=== PATIENT | male | born 1970 | race Caucasian/White ===

== ENCOUNTER 2018-05-20 16:21 | Observation (INO) | payer SELFPAY ==
[2018-05-20] MEDS ORDERED: ASPIRIN 81 MG TABLET, CHEWABLE PO ONE (16:54)
--- NOTE | 2018-05-20 16:54 | ER Document Report ---
ED Medical Screen (RME) <MAR KELLOGG - Last Filed: 05/20/18 16:53> <KEVIN LORENZ - Last Filed: 05/20/18 19:52> - General Chief Complaint: Chest Pain Stated Complaint: CHEST PAIN Time Seen by Provider: 05/20/18 16:45 Notes: 48 years old male lower substernal pain since this afternoon 11/17 in intensity. Nonradiating not associated with any nausea vomiting palpitation or diaphoresis. But anxious. He is a non-smoker no alcohol abuse. His father of [place] at the age of 60. (MAR KELLOGG) - Related Data Allergies/Adverse Reactions: No Known Allergies Allergy (Unverified 05/20/18 16:23) Past Medical History - Social History Frequency of alcohol use: None Drug Abuse: None - Past Medical History Cardiac Medical History: Reports: Hx Hypertension Renal/ Medical History: Denies: Hx Peritoneal Dialysis <MAR KELLOGG - Last Filed: 05/20/18 16:53> - Vital signs Vitals: Temp Pulse Resp BP Pulse Ox 98.9 F 100 18 128/65 H 96 05/20/18 16:39 05/20/18 16:39 05/20/18 16:39 05/20/18 16:39 05/20/18 16:39 Course - Laboratory Result Diagrams: 05/20/18 17:02 05/20/18 17:02 <KEVIN LORENZ - Last Filed: 05/20/18 19:52> - Vital Signs Vital signs: Temp Pulse Resp BP Pulse Ox 98.9 F 100 21 H 128/75 H 96 05/20/18 16:39 05/20/18 16:39 05/20/18 19:01 05/20/18 19:01 05/20/18 19:01 - Laboratory Laboratory results interpreted by me: 05/20/18 05/20/18 17:02 17:02 WBC 13.0 H Absolute Neutrophils 9.1 H ALT 85 H Alkaline Phosphatase 133 H Doctor's Discharge <MAR KELLOGG - Last Filed: 05/20/18 16:53> <KEVIN LORENZ - Last Filed: 05/20/18 19:52> - Discharge Clinical Impression: Chest pain Condition: Stable Disposition: ADMITTED OBSERVATION Referrals: LOCALDE,LISSETTE [Primary Care Provider] - Follow up as needed
--- NOTE | 2018-05-20 17:06 | EKG REPORT ---
SEVERITY:- NORMAL ECG - SINUS RHYTHM : Confirmed by: Dexter Moseley MD 20-May-2018 17:06:15
[2018-05-20 17:35] LABS: ABSOLUTE BASOPHILS # (AUTO) 0.1 10^3/uL (0.0-0.2); ABSOLUTE EOSINOPHILS # (AUTO) 0.4 10^3/uL (0.0-0.6); ABSOLUTE LYMPHOCYTES (AUTO) 2.5 10^3/uL (0.5-4.7); ABSOLUTE MONOCYTES (AUTO) 0.9 10^3/uL (0.1-1.4); ABSOLUTE NEUT (AUTO) 9.1 10^3/uL (1.7-8.2); BASOPHILS % (AUTO) 0.7 % (0-2); EOSINOPHILS % (AUTO) 3.1 % (0-6); HEMATOCRIT 45.7 % (37.9-51.0); HEMOGLOBIN 15.3 g/dL (13.5-17.0); LYMPHOCYTES % (AUTO) 19.2 % (13-45); MEAN CORPUSCULAR HEMOGLOBIN 28.7 pg (27.0-33.4); MEAN CORPUSCULAR HGB CONC 33.6 g/dL (32.0-36.0); MEAN CORPUSCULAR VOLUME 85 fl (80-97); MONOCYTES % (AUTO) 6.7 % (3-13); PLATELET COUNT 327 10^3/uL (150-450); RED BLOOD COUNT 5.35 10^6/uL (4.35-5.55); RED CELL DISTRIBUTION WIDTH 13.7 % (11.5-14.0); SEGMENTED NEUTROPHILS % (AUTO) 70.3 % (42-78); TOTAL CELLS COUNTED % (AUTO) 100 %
--- NOTE | 2018-05-20 17:46 | RADIOLOGY REPORT (SQ) ---
EXAM DESCRIPTION: CHEST SINGLE VIEW COMPLETED DATE/TIME: 05/20/2018 5:34 pm REASON FOR STUDY: Chest pain COMPARISON: None. EXAM PARAMETERS: NUMBER OF VIEWS: One view. TECHNIQUE: Single frontal radiographic view of the chest acquired. RADIATION DOSE: NA LIMITATIONS: None. FINDINGS: LUNGS AND PLEURA: No opacities, masses or pneumothorax. No pleural effusion. MEDIASTINUM AND HILAR STRUCTURES: No masses. Contour normal. HEART AND VASCULAR STRUCTURES: Heart normal in size. Normal vasculature. BONES: No acute findings. HARDWARE: None in the chest. OTHER: No other significant finding. IMPRESSION: NO ACUTE RADIOGRAPHIC FINDING IN THE CHEST. TECHNICAL DOCUMENTATION: JOB ID: [id number] [employer]- All Rights Reserved Reading location - IP/workstation name: [email or web address]
[2018-05-20] MEDS ORDERED: METOCLOPRAMIDE HCL ORAL SOLN 10 MG/10 ML UDCUP PO ONE (17:54)
[2018-05-20] MEDS ORDERED: LIDOCAINE 2% VISCOUS SOLN 20 ML UDCUP PO ONE (17:54)
[2018-05-20] MEDS ORDERED: MAG HYDROX/AL HYDROX/SIMETH SUSP 30 ML UDCUP PO ONE (17:54)
[2018-05-20 18:14] LABS: ALANINE AMINOTRANSFERASE 85 U/L (21-72); ALBUMIN 4.6 g/dL (3.5-5.0); ALKALINE PHOSPHATASE 133 U/L (38-126); ANION GAP 10 (5-19); ASPARTATE AMINO TRANSFERASE 47 U/L (17-59); BILIRUBIN,DIRECT 0.2 mg/dL (0.0-0.4); BILIRUBIN,TOTAL 0.4 mg/dL (0.2-1.3); BLOOD UREA NITROGEN 11 mg/dL (7-20); CALCIUM 9.9 mg/dL (8.4-10.2); CARBON DIOXIDE 29 mmol/L (22-30); CHLORIDE 101 mmol/L (98-107); CREATINE KINASE 56 U/L (55-170); GLUCOSE 89 mg/dL (75-110); SODIUM 139.8 mmol/L (137-145); TOTAL PROTEIN 7.2 g/dL (6.3-8.2)
[2018-05-20 18:17] LABS: POTASSIUM 4.5 mmol/L (3.6-5.0)
[2018-05-20 18:25] LABS: CREATINE KINASE MB < 0.22 ng/mL (<4.55); TROPONIN I < 0.012 ng/mL
[2018-05-20] MEDS ORDERED: ONDANSETRON 4 MG TAB.RAPDIS PO PRN (20:03)
[2018-05-20] MEDS ORDERED: ONDANSETRON HCL INJ/PF 4 MG/2 ML SDV IV PRN (20:03)
[2018-05-20] MEDS ORDERED: MAGNESIUM HYDROXIDE SUSP 30 ML UDCUP PO PRN (20:03)
[2018-05-20] MEDS ORDERED: ACETAMINOPHEN 650 MG SUPP.RECT PR PRN (20:14)
[2018-05-20] MEDS ORDERED: HYDRALAZINE HCL INJ/PF 20 MG/1 ML SDV IV PRN (20:14)
[2018-05-20] MEDS ORDERED: ALBUTEROL SULFATE 0.083% NEB 2.5 MG/3 ML AMPUL NEB PRN (20:14)
[2018-05-20] MEDS ORDERED: NITROGLYCERIN 0.4 MG/TAB 25 TAB/BOTTLE SL PRN (20:14)
[2018-05-20] MEDS ORDERED: MORPHINE SULFATE 10 MG/ML INJ IV PRN ×3 (20:14)
[2018-05-20] MEDS ORDERED: ACETAMINOPHEN 325 MG TABLET PO PRN (20:14)
[2018-05-20] MEDS ORDERED: NICOTINE 21 MG/24 HR PATCH.TD24 TD PRN (20:14)
[2018-05-20] MEDS: METOCLOPRAMIDE HCL 10 MG TABLET PO SCH (21:08)
[2018-05-20] MEDS ORDERED: FAMOTIDINE 20 MG TABLET PO SCH (22:00)
--- NOTE | 2018-05-20 22:40 | ER Document Report ---
ED General - General Chief Complaint: Chest Pain Stated Complaint: CHEST PAIN Time Seen by Provider: 05/20/18 16:45 Mode of Arrival: Ambulatory Information source: Patient Notes: This is a 48-year-old man with a history of hypertension and anxiety who presents to the emergency room after an episode of retrosternal chest pain associated with palpitations and near syncope. Patient states he still had chest discomfort for approximately an hour and 1/2-2 hours after the event. He is currently pain-free. TRAVEL OUTSIDE OF THE [place] IN LAST 30 DAYS: No - HPI Onset: Just prior to arrival Onset/Duration: Sudden Quality of pain: Dull Severity: Moderate Pain Level: 2 Associated symptoms: Chest pain. denies: Fever, Shortness of breath Exacerbated by: Denies Relieved by: Denies Similar symptoms previously: Yes Recently seen / treated by doctor: No - Related Data Allergies/Adverse Reactions: No Known Allergies Allergy (Unverified 05/20/18 16:23) Past Medical History - General Information source: Patient - Social History Smoking Status: Never Smoker Cigarette use (# per day): No Chew tobacco use (# tins/day): No Frequency of alcohol use: None Drug Abuse: None Lives with: Family Family History: CAD Patient has suicidal ideation: No Patient has homicidal ideation: No - Past Medical History Cardiac Medical History: Reports: Hx Hypertension Denies: Hx Coronary Artery Disease, Hx Heart Attack Pulmonary Medical History: Denies: Hx Asthma, Hx COPD, Hx Respiratory Failure EENT Medical History: Reports: None Neurological Medical History: Denies: Hx Migraine, Hx Seizures Endocrine Medical History: Denies: Hx Diabetes Mellitus Type 1, Hx Diabetes Mellitus Type 2, Hx Hyperthyroidism, Hx Hypothyroidism Renal/ Medical History: Denies: Hx Peritoneal Dialysis Malignancy Medical History: Reports None GI Medical History: Denies: Hx Cirrhosis, Hx Crohn's Disease, Hx Hepatitis, Hx Ulcerative Colitis Musculoskeletal Medical History: Denies Hx Arthritis, Denies Hx Gout Skin Medical History: Denies Hx Eczema, Denies Hx Psoriasis Traumatic Medical History: Reports: None Infectious Medical History: Reports: None. Denies: Hx Hepatitis Past Surgical History: Reports: None Review of Systems - Review of Systems Constitutional: denies: Chills, Fever EENT: No symptoms reported Cardiovascular: See HPI Respiratory: denies: Short of breath, Wheezing Gastrointestinal: denies: Abdomen distended, Abdominal pain Genitourinary: No symptoms reported Male Genitourinary: No symptoms reported Musculoskeletal: No symptoms reported Skin: No symptoms reported Hematologic/Lymphatic: No symptoms reported Neurological/Psychological: No symptoms reported Physical Exam - Vital signs Vitals: Temp Pulse Resp BP Pulse Ox 98.9 F 100 18 128/65 H 96 05/20/18 16:39 05/20/18 16:39 05/20/18 16:39 05/20/18 16:39 05/20/18 16:39 Notes: Physical exam: GENERAL: She is alert and oriented x3, no acute distress HEAD: Atraumatic, normocephalic. EYES: Pupils equal round and reactive to light, extraocular movements intact, sclera anicteric, conjunctiva are normal. ENT: TMs normal, nares patent, oropharynx clear without exudates. Moist mucous membranes. NECK: Normal range of motion, supple without obvious mass or JVD. LUNGS: Breath sounds clear to auscultation bilaterally and equal. No wheezes rales or rhonchi. HEART: Regular rate and rhythm without murmurs, rubs or gallops. ABDOMEN: Soft, normoactive bowel sounds. No tenderness to palpation. No guarding, no rebound. No masses appreciated. EXTREMITIES: Normal range of motion, no pitting or edema. No clubbing or cyanosis. NEUROLOGICAL: Cranial nerves II through XII grossly intact. Normal speech, moving all extremities. PSYCH: Normal mood, normal affect. SKIN: Warm, Dry, normal turgor, no rashes or lesions noted. Course - Vital Signs Vital signs: Temp Pulse Resp BP Pulse Ox 98.9 F 100 23 H 121/77 96 05/20/18 16:39 05/20/18 16:39 05/20/18 21:01 05/20/18 21:01 05/20/18 21:01 - Laboratory Result Diagrams: 05/20/18 17:02 05/20/18 17:02 Laboratory results interpreted by me: 05/20/18 05/20/18 17:02 17:02 WBC 13.0 H Absolute Neutrophils 9.1 H ALT 85 H Alkaline Phosphatase 133 H - Diagnostic Test Radiology reviewed: Image reviewed, Reports reviewed - X-ray showed no infiltrates Discharge - Discharge Clinical Impression: Chest pain Condition: Stable Disposition: ADMITTED OBSERVATION Admitting Provider: Hospitalist - Dr Morales Unit Admitted: Telemetry
[2018-05-20] MEDS: FAMOTIDINE 20 MG TABLET PO SCH (23:14)
[2018-05-20] MEDS: SUCRALFATE SUSP 1 GM/10 ML UDCUP PO SCH (23:14)
[2018-05-20] MEDS: DOCUSATE SODIUM 100 MG CAPSULE PO SCH (23:14)
[2018-05-20 23:50] LABS: CREATINE KINASE MB < 0.22 ng/mL (<4.55); TROPONIN I < 0.012 ng/mL
--- NOTE | 2018-05-21 05:37 | PDOC H&P ---
History of Present Illness Admission Date/PCP: NO LOCALND Patient complains of: Chest pain History of Present Illness: MAGDY PENA is a 48 year old male who presented to the emergency room with acute onset chest pain. He admits that he developed chest pain about an hour or so prior to coming to the emergency room and continued to have chest pain for a total of approximately 1-1/2 hours. Pain was of a moderate to severe intensity (7/10) and was located in the substernal area of the anterior chest without radiation. Pain was constant from onset to and and only resolved after treatment in the emergency room. Pain was accompanied by palpitations (rapid heart rate) and lightheadedness/near syncope. He denies prior similar episodes and had not identified any aggravating or ameliorating factors for his pain prior to coming to the emergency room. He does relate a family history of early age onset coronary artery disease and he acknowledges a personal history of hypertension. In the emergency room his chest pain resolved after receiving a GI cocktail however due to his family history and personal risk factors it was felt the patient should have a further evaluation of his cardiac status. To that end he is admitted to observation status for cardiac stress testing in the morning. Past Medical History Cardiac Medical History: Reports: Hypertension Denies: Coronary Artery Disease, Myocardial Infarction Pulmonary Medical History: Denies: Asthma, Chronic Obstructive Pulmonary Disease (COPD), Respiratory Failure EENT Medical History: Reports: None Neurological Medical History: Denies: Migraine, Multiple Sclerosis, Seizures Endocrine Medical History: Reports: Obesity Denies: Diabetes Mellitus Type 1, Diabetes Mellitus Type 2, Hyperthyroidism, Hypothyroidism Renal/ Medical History: Denies: Chronic Kidney Disease, Nephrolithiasis Malignancy Medical History: Reports: None GI Medical History: Denies: Cirrhosis, Crohn's Disease, Hepatitis, Ulcerative Colitis Musculoskeltal Medical History: Denies: Arthritis, Gout Skin Medical History: Denies: Eczema, Psoriasis Psychiatric Medical History: Denies: Alcohol Dependency, Substance Abuse, Tobacco Dependency Traumatic Medical History: Reports: None Hematology: Denies: Anemia, Bleeding Tendencies Infectious Medical History: Reports: None Past Surgical History Past Surgical History: Reports: None Social History Information Source: Patient Smoking Status: Never Smoker Frequency of Alcohol Use: Rare Hx Recreational Drug Use: No Drugs: None Hx Prescription Drug Abuse: No - Advance Directive Resuscitation Status: Full Code Surrogate healthcare decision maker:: Mother Family History Family History: CAD Parental Family History Reviewed: Yes Children Family History Reviewed: No Sibling(s) Family History Reviewed.: Yes Medication/Allergy Home Medications: Hydroxyzine HCl [Atarax 25 mg Tablet] 25 mg PO 05/20/18 Lisinopril [Prinivil 5 mg Tablet] 2.5 mg PO DAILY 05/20/18 Allergies/Adverse Reactions: No Known Allergies Allergy (Unverified 05/20/18 16:23) Review of Systems Constitutional: ABSENT: chills, fever(s) Eyes: ABSENT: visual disturbances, other - Ocular pain Ears: ABSENT: hearing changes, other - Ear pain Nose, Mouth, and Throat: ABSENT: mouth pain, sore throat Cardiovascular: PRESENT: as per HPI, chest pain, palpitations. ABSENT: dyspnea on exertion, edema, orthropnea Respiratory: ABSENT: cough, dyspnea, hemoptysis Gastrointestinal: ABSENT: abdominal pain, constipation, diarrhea, nausea, vomiting Genitourinary: ABSENT: dysuria, hematuria Musculoskeletal: ABSENT: back pain, deformity, joint swelling Integumentary: ABSENT: pruritus, rash Neurological: PRESENT: as per HPI, other - Lightheadedness and near syncope. ABSENT: confusion, convulsions, memory loss Psychiatric: ABSENT: anxiety, depression Endocrine: ABSENT: cold intolerance, heat intolerance Hematologic/Lymphatic: ABSENT: easy bleeding, easy bruising Physical Exam Vital Signs: Temp Pulse Resp BP Pulse Ox 98.9 F 100 21 H 128/75 H 96 05/20/18 16:39 05/20/18 16:39 05/20/18 19:01 05/20/18 19:01 05/20/18 19:01 Intake & Output 05/18/18 05/19/18 05/20/18 23:59 23:59 23:59 Weight 99.2 kg General appearance: PRESENT: no acute distress, cooperative, obese Head exam: PRESENT: atraumatic, normocephalic Eye exam: PRESENT: conjunctiva pink, EOMI. ABSENT: scleral icterus Ear exam: PRESENT: normal external ear exam. ABSENT: bleeding, drainage Mouth exam: PRESENT: dry mucosa, neck supple Neck exam: ABSENT: JVD, thyromegaly, tracheal deviation Respiratory exam: PRESENT: clear to auscultation jack, symmetrical, unlabored Cardiovascular exam: PRESENT: RRR. ABSENT: clicks, gallop, rubs Pulses: PRESENT: normal radial pulses, normal dorsalis pedis pul GI/Abdominal exam: PRESENT: normal bowel sounds, soft Rectal exam: PRESENT: deferred Extremities exam: ABSENT: joint swelling, pedal edema, tenderness Musculoskeletal exam: PRESENT: full ROM, normal inspection Neurological exam: PRESENT: alert, oriented to person, oriented to place, orien gerardo to time, oriented to situation, CN II-XII grossly intact. ABSENT: motor sensory deficit Psychiatric exam: PRESENT: appropriate affect, normal mood Skin exam: PRESENT: dry, intact, warm. ABSENT: jaundice, rash, urticaria Results Laboratory Results: 05/20/18 17:02 05/20/18 17:02 05/20/18 05/20/18 17:02 17:02 WBC 13.0 H RBC 5.35 Hgb 15.3 Hct 45.7 MCV 85 MCH 28.7 MCHC 33.6 RDW 13.7 Plt Count 327 Seg Neutrophils % 70.3 Lymphocytes % 19.2 Monocytes % 6.7 Eosinophils % 3.1 Basophils % 0.7 Absolute Neutrophils 9.1 H Absolute Lymphocytes 2.5 Absolute Monocytes 0.9 Absolute Eosinophils 0.4 Absolute Basophils 0.1 Sodium 139.8 Potassium 4.5 Chloride 101 Carbon Dioxide 29 Anion Gap 10 BUN 11 Creatinine 0.81 Est GFR ( Amer) > 60 Est GFR (Non-Af Amer) > 60 Glucose 89 Calcium 9.9 Total Bilirubin 0.4 AST 47 ALT 85 H Alkaline Phosphatase 133 H Total Protein 7.2 Albumin 4.6 05/20/18 05/20/18 17:02 17:02 Creatine Kinase 56 CK-MB (CK-2) < 0.22 Troponin I < 0.012 Impressions: Chest X-Ray 05/20/18 16:54 IMPRESSION: NO ACUTE RADIOGRAPHIC FINDING IN THE CHEST. Assessment & Plan - Diagnosis (1) Chest pain Qualifiers: Chest pain type: unspecified Qualified Code(s): R07.9 - Chest pain, unspecified Is this a current diagnosis for this admission?: Yes Plan: Patient will have serial cardiac enzymes and serial electrocardiograms performed to assess his myocardial status. He will receive morphine sulfate 2-4 mg IV every 2 hours as needed for chest pain not resolved by sublingual nitroglycerin. He will undergo a Cardiolite stress test with a gated nuclear medicine study in the morning. Expect patient to be discharged tomorrow after his stress test if negative. Additionally he has been started on a GERD therapeutic protocol due to his response to GI treatment in the emergency room. (2) Essential hypertension Is this a current diagnosis for this admission?: Yes Plan: Patient will be treated for his hypertension with his usual antihypertensive regimen when his pharmaceutical records are available. In the meantime his hypertension will be addressed on an as-needed basis with intravenous hydralazine 20 mg IV every 4 hours as needed blood pressure greater than 160 systolic or 100 diastolic. (3) Family history of premature CAD Is this a current diagnosis for this admission?: Yes Plan: Due to the patient's family history of coronary artery disease under the age of 60 he will be given a Cardiolite stress test in the morning. (4) Obesity (BMI 30-39.9) Is this a current diagnosis for this admission?: Yes Plan: Patient will have a consultation with dietary to assist him in a lifestyle change diet to lose weight and improve his overall health. - Time Time Spent: 30 to 50 Minutes Critical Time spent with patient: Less than 15 minutes Medications reviewed and adjusted accordingly: Yes Anticipated discharge: Home Within: within 24 hours - Inpatient Certification Based on my medical assessment, after consideration of the patient's comorbidities, presenting symptoms, or acuity I expect that the services needed warrant INPATIENT care.: No I certify that my determination is in accordance with my understanding of Medicare's requirements for reasonable and necessary INPATIENT services [42 CFR 412.3e].: No Medical Necessity: Need Close Monitoring Due to Risk of Patient Decompensation, Need For Continuous Telemetry Monitoring
[2018-05-21 05:56] LABS: ANION GAP 9 (5-19); BLOOD UREA NITROGEN 11 mg/dL (7-20); CALCIUM 9.2 mg/dL (8.4-10.2); CARBON DIOXIDE 27 mmol/L (22-30); CHLORIDE 105 mmol/L (98-107); CHOLESTEROL 157.87 mg/dL (0-200); GLUCOSE 122 mg/dL (75-110); POTASSIUM 4.2 mmol/L (3.6-5.0); SODIUM 140.8 mmol/L (137-145); TRIGLYCERIDES 91 mg/dL (<150)
[2018-05-21 06:06] LABS: CREATINE KINASE MB < 0.22 ng/mL (<4.55); DIRECT LDL 109 mg/dL (<100); TROPONIN I < 0.012 ng/mL
[2018-05-21 06:13] LABS: FREE T3 4.23 pg/mL (2.77-5.27); FREE T4 (FREE THYROXINE) 1.42 ng/dL (0.78-2.19)
[2018-05-21 06:26] LABS: THYROID STIMULATING HORMONE 1.01 uIU/mL (0.47-4.68)
--- NOTE | 2018-05-21 07:56 | EKG REPORT ---
SEVERITY:- NORMAL ECG - SINUS RHYTHM : Confirmed by: Dexter Moseley MD 21-May-2018 07:55:30
[2018-05-21] MEDS ORDERED: REGADENOSON INJ 0.4 MG/5 ML DISP.SYRIN IV ONE (08:00)
[2018-05-21] MEDS ORDERED: FONDAPARINUX SODIUM INJ 2.5 MG/0.5 ML DISP.SYRIN SUBCUT SCH ×2 (08:00→11:00)
[2018-05-21] MEDS: SUCRALFATE SUSP 1 GM/10 ML UDCUP PO SCH ×3 (10:47→15:01)
[2018-05-21] MEDS: FAMOTIDINE 20 MG TABLET PO SCH ×3 (10:47→15:01)
[2018-05-21] MEDS: DOCUSATE SODIUM 100 MG CAPSULE PO SCH (10:48)
[2018-05-21] MEDS: METOCLOPRAMIDE HCL 10 MG TABLET PO SCH ×3 (10:56→15:02)
[2018-05-21 11:10] LABS: HEMATOCRIT 42.4 % (37.9-51.0); HEMOGLOBIN 14.5 g/dL (13.5-17.0); MEAN CORPUSCULAR HEMOGLOBIN 28.9 pg (27.0-33.4); MEAN CORPUSCULAR HGB CONC 34.2 g/dL (32.0-36.0); MEAN CORPUSCULAR VOLUME 85 fl (80-97); PLATELET COUNT 249 10^3/uL (150-450); RED BLOOD COUNT 5.02 10^6/uL (4.35-5.55); RED CELL DISTRIBUTION WIDTH 13.8 % (11.5-14.0); WHITE BLOOD COUNT 10.5 10^3/uL (4.0-10.5)
[2018-05-21 11:47] LABS: CREATINE KINASE MB < 0.22 ng/mL (<4.55); TROPONIN I < 0.012 ng/mL
[2018-05-21 12:44] VITALS: BP 132/63
--- NOTE | 2018-05-21 19:24 | PDOC DISCHARGE SUMMARY ---
General - Admit/Disc Date/PCP Admission Date/Primary Care Provider: 05/20/18 20:36 NO LOCALMD Discharge Date: 05/21/18 - Discharge Diagnosis (1) Chest pain Is this a current diagnosis for this admission?: Yes Summary: Enzymes were negative, stress test was negative. Chest pain had resolved. - Additional Information Resuscitation Status: Full Code Discharge Diet: Cardiac Discharge Activity: Activity As Tolerated Home Medications: Hydroxyzine HCl [Atarax 25 mg Tablet] 25 mg PO DAILY 05/20/18 Lisinopril [Prinivil 5 mg Tablet] 2.5 mg PO DAILY 05/20/18 History of Present Illness History of Present Illness: MAGDY PENA is a 48 year old male who presented to the emergency room with acute onset chest pain. He admits that he developed chest pain about an hour or so prior to coming to the emergency room and continued to have chest pain for a total of approximately 1-1/2 hours. Pain was of a moderate to severe intensity (7/10) and was located in the substernal area of the anterior chest without radiation. Pain was constant from onset to and and only resolved after treatment in the emergency room. Pain was accompanied by palpitations (rapid heart rate) and lightheadedness/near syncope. He denies prior similar episodes and had not identified any aggravating or ameliorating factors for his pain prior to coming to the emergency room. He does relate a family history of early age onset coronary artery disease and he acknowledges a personal history of hypertension. In the emergency room his chest pain resolved after receiving a GI cocktail however due to his family history and personal risk factors it was felt the patient should have a further evaluation of his cardiac status. To that end he is admitted to observation status for cardiac stress testing in the morning. Hospital Course Hospital Course: He ruled out for acute [place]. We did a stress test which was negative. Recommended he take a baby aspirin every day in addition to his other medications. He was pain-free at time of discharge. His labs and examination were reassuring he was discharged in good condition. Physical Exam Vital Signs: Temp Pulse Resp BP Pulse Ox 99.3 F 99 21 H 132/63 H 96 05/21/18 16:23 05/21/18 16:23 05/21/18 16:23 05/21/18 16:23 05/21/18 16:23 Intake & Output 05/20/18 05/21/18 05/22/18 06:59 06:59 06:59 Intake Total 222 474 Balance 222 474 Weight 99.2 kg General appearance: PRESENT: no acute distress, cooperative, disheveled, m orbidly obese Respiratory exam: PRESENT: clear to auscultation jack, symmetrical, unlabored. ABSENT: accessory muscle use, crackles, rhonchi, tachypnea, wheezes Cardiovascular exam: PRESENT: RRR, +S1, +S2 Vascular exam: PRESENT: normal capillary refill GI/Abdominal exam: PRESENT: normal bowel sounds, soft. ABSENT: distended, guarding, rebound, tenderness Extremities exam: ABSENT: clubbing, pedal edema Musculoskeletal exam: PRESENT: normal inspection. ABSENT: deformity Neurological exam: PRESENT: alert, awake, oriented to person, oriented to place, oriented to time, oriented to situation Psychiatric exam: PRESENT: flat affect Skin exam: PRESENT: dry, warm Results Laboratory Results: 05/21/18 10:51 05/21/18 05:03 05/21/18 05/21/18 05/21/18 05:03 05:03 10:51 WBC 10.5 RBC 5.02 Hgb 14.5 Hct 42.4 MCV 85 MCH 28.9 MCHC 34.2 RDW 13.8 Plt Count 249 Sodium 140.8 Potassium 4.2 Chloride 105 Carbon Dioxide 27 Anion Gap 9 BUN 11 Creatinine 0.83 Est GFR ( Amer) > 60 Est GFR (Non-Af Amer) > 60 Glucose 122 H Calcium 9.2 Magnesium 2.3 Triglycerides 91 Cholesterol 157.87 LDL Cholesterol Direct 109 H VLDL Cholesterol 18.0 HDL Cholesterol 34 L TSH 1.01 Free T4 1.42 Free T3 pg/mL 4.23 05/20/18 05/20/18 05/20/18 17:02 17:02 23:04 Creatine Kinase 56 36 L CK-MB (CK-2) < 0.22 Troponin I < 0.012 NT-Pro-B Natriuret Pep 05/20/18 05/21/18 05/21/18 23:04 05:03 05:03 Creatine Kinase 36 L CK-MB (CK-2) < 0.22 < 0.22 Troponin I < 0.012 < 0.012 NT-Pro-B Natriuret Pep 05/21/18 05/21/18 05/21/18 05:03 10:51 10:51 Creatine Kinase 34 L CK-MB (CK-2) < 0.22 Troponin I < 0.012 NT-Pro-B Natriuret Pep 27 Impressions: Chest X-Ray 05/20/18 16:54 IMPRESSION: NO ACUTE RADIOGRAPHIC FINDING IN THE CHEST. Qualifiers - * PATIENT BEING DISCHARGED WITH ANY OF THE FOLLOWING DIAGNOSIS: No
--- NOTE | 2018-05-21 23:14 | DRAGON STRESS TEST REPORT ---
Intravenous Lexiscan Cardiolite stress test using single photon emmision computerized tomography. Date of procedure: 05/21/2018. Ordering Provider: Dr. Burns.Patient's status: In Patient. Indication: Chest pain. Coronary risk factors: Age, hypertension, and family history of coronary artery disease. Resting EKG: Sinus Rhythm. Within Normal Limits. Stress EKG No changes of ischemia. The patient had no chest pain or discomfort, and there were no arrhythmias seen. Reason for termination: Protocol. Conclusions: Normal EKG and hemodynamic response to IV Lexiscan. Nuclear data: At rest the patient was given 14.98 millicuries of technetium 99m sestamibi injected intravenously. As per protocol rest non gated SPECT images were obtained. Subsequently the patient was given intravenous Lexiscan at a dose of 0.4 mg in 5 mL intravenously, followed by flush with normal saline. Subsequently the stress dose of 44.9 millicuries of technetium 99m sestamibi was injected intravenously. As per protocol stress gated images were obtained. Nuclear interpretation: Review of images showed that all segments of the myocardium had normal perfusion at rest, and normal perfusion post stress with IV Lexiscan. All segments of the myocardium had normal motion, contraction, and thickening by gated study. T. I D. ratio was normal at 1.08. There is no transient ischemic calcification of the left ventricle. Computer read rest, and stress left ventricular ejection fraction were 62 %, and 66 %, respectively. Conclusion: 1. There is no scintigraphic evidence of Lexiscan induced myocardial ischemia. 2. There is no scintigraphic evidence of myocardial infarction/scar. Recommendations: Aggressive risk factor modification, and treating the underlying co- morbidities. [facility]
== END 2018-05-21 17:31 | disposition home or self-care (01) ==
LOC: ER 16:21 → EH 20:36 → 4W 22:36
PROVIDERS: ADMIT Emergency Medicine; ATTEND Emergency Medicine
DX: R07.2 Precordial pain (principal); R00.2 Palpitations; R42 Dizziness and giddiness; R55 Syncope and collapse; I10 Essential (primary) hypertension; E66.9 Obesity, unspecified; Z68.39 Body mass index [BMI] 39.0-39.9, adult; Z79.899 Other long term (current) drug therapy; Z82.49 Family history of ischemic heart disease and other diseases of the circulatory system
CPT/HCPCS: 93005 ×2; 99285; 36415 ×2; 84439; 82553 ×2; 82550 ×2; 83735; 84443; 85025; 85027; 80048; 80053; 84484 ×2; 84481; 83036; 80061; 83880; 93017; 71045; 78452; 93010 ×2; G0378 ×3; A9500; J2785; J3490 ×3; Q9969

== ENCOUNTER → 2019-03-11 | Outpatient (CLI) | payer OTHER ==
[2019-03-11 11:21] LABS: ABSOLUTE BASOPHILS # (AUTO) 0.1 10^3/uL (0.0-0.2); ABSOLUTE EOSINOPHILS # (AUTO) 0.3 10^3/uL (0.0-0.6); ABSOLUTE LYMPHOCYTES (AUTO) 2.6 10^3/uL (0.5-4.7); ABSOLUTE MONOCYTES (AUTO) 0.6 10^3/uL (0.1-1.4); ABSOLUTE NEUT (AUTO) 9.3 10^3/uL (1.7-8.2); BASOPHILS % (AUTO) 0.6 % (0-2); EOSINOPHILS % (AUTO) 2.3 % (0-6); HEMATOCRIT 48.9 % (37.9-51.0); HEMOGLOBIN 16.3 g/dL (13.5-17.0); LYMPHOCYTES % (AUTO) 20.2 % (13-45); MEAN CORPUSCULAR HEMOGLOBIN 28.3 pg (27.0-33.4); MEAN CORPUSCULAR HGB CONC 33.4 g/dL (32.0-36.0); MEAN CORPUSCULAR VOLUME 85 fl (80-97); MONOCYTES % (AUTO) 4.9 % (3-13); PLATELET COUNT 269 10^3/uL (150-450); RED BLOOD COUNT 5.78 10^6/uL (4.35-5.55); RED CELL DISTRIBUTION WIDTH 13.7 % (11.5-14.0); TOTAL CELLS COUNTED % (AUTO) 100 %; WHITE BLOOD COUNT 12.9 10^3/uL (4.0-10.5)
[2019-03-11 11:45] LABS: ALBUMIN 4.8 g/dL (3.5-5.0); ALKALINE PHOSPHATASE 112 U/L (38-126); ANION GAP 12 (5-19); ASPARTATE AMINO TRANSFERASE 37 U/L (17-59); BILIRUBIN,DIRECT 0.2 mg/dL (0.0-0.4); BILIRUBIN,TOTAL 0.5 mg/dL (0.2-1.3); BLOOD UREA NITROGEN 12 mg/dL (7-20); CALCIUM 10.5 mg/dL (8.4-10.2); CARBON DIOXIDE 29 mmol/L (22-30); CHLORIDE 102 mmol/L (98-107); GLUCOSE 99 mg/dL (75-110); POTASSIUM 4.2 mmol/L (3.6-5.0); TRIGLYCERIDES 137 mg/dL (<150)
[2019-03-11 11:55] LABS: DIRECT LDL 184 mg/dL (<100)
== END ==
LOC: CCC 10:47
DX: I10 Essential (primary) hypertension (principal)
CPT/HCPCS: 36415; 80053; 80061; 83036; 84443; 85025